=== PATIENT | male | born 1990 | race Two or more races ===

== ENCOUNTER 2024-05-27 23:45 | Emergency (ER) | payer OTHER ==
[~2024-05-27] VITALS: Ht 185.4 cm; Wt 99.8 kg
[2024-05-28] MEDS ORDERED: KETOROLAC TROMETHAMINE 60 MG VIAL IM STA (01:14)
[2024-05-28] MEDS ORDERED: KETOROLAC TROMETHAMINE 60 MG VIAL IM ONE (01:19)
[2024-05-28 01:47] LABS: HEMATOCRIT 40.7 % (39.0-48.0); HEMOGLOBIN 14.3 g/dL (13-16.00); MEAN CELL VOLUME 87.1 fL (80.0-100.00); MEAN CORPUSCULAR HEMOGLOBIN 30.6 pg (27.00-32.0); MEAN CORPUSCULAR HGB CONC 35.1 g/dl (32.0-36.0); PLATELET COUNT 164 K/uL (150-450); RED BLOOD COUNT 4.67 M/uL (4.00-6.00)
[2024-05-28 02:01] LABS: PARTIAL THROMBOPLASTIN TIME 26.8 SECONDS (22.0-34.0); PROTHROMBIN TIME 10.9 SECONDS (9.0-11.5)
== END 2024-05-28 | disposition left against medical advice (07) ==
LOC: ER 23:47
PROVIDERS: General Practice
DX: N48.89 Other specified disorders of penis (principal)
CPT/HCPCS: 36415; 96372; 99282; J1885